=== PATIENT | male | born 1975 | race Caucasian/White ===

== ENCOUNTER 2023-07-16 17:42 | Inpatient (IN) | payer OTHER ==
[2023-07-16 17:55] VITALS: BMI 39.1
[2023-07-16] MEDS ORDERED: PIPERACILLIN/TAZOB 4.5 GM 4.5 GM/100 ML BAG IVPB ONE (18:41)
[2023-07-16 19:11] LABS: VENOUS BASE EXCESS 1.6 mmol/L (-2-2); VENOUS O2 SATURATION 86.1 % (70-80); VENOUS PCO2 38.3 mmHg (38-52); VENOUS PH 7.443 (7.310-7.410)
[2023-07-16 19:13] LABS: BASO % 0.3 % (0-2.0); EOS % 2.2 % (0-4.5); HEMATOCRIT 35.9 % (35.4-49); HEMOGLOBIN 12.3 GM/dL (11.7-16.9); LYMPH % 14.6 % (8-40); MCH 30.7 pg (25.7-33.7); MCHC 34.2 g/dl (32.0-35.9); MEAN CELL VOLUME 89.7 fl (80-96); MEAN PLT VOLUME 8.5 fl (7.5-11.1); MONO % 6.4 % (3.8-10.2); NEUT % 76.5 % (42.8-82.8); PLATELET COUNT 276 10^3/uL (134-434); RDW 14.1 % (11.9-15.9); WHITE BLOOD COUNT 12.1 K/mm3 (4.0-10.0)
[2023-07-16 19:20] LABS: INR 1.19 (0.83-1.09); PROTHROMBIN TIME (PATIENT) 13.8 SEC (9.7-13.0)
[2023-07-16 19:22] LABS: ACTIVATED PTT 26.7 SECONDS (25.2-36.5)
[2023-07-16 19:31] LABS: POTASSIUM 3.3 mmol/L (3.5-5.1)
[2023-07-16 19:34] LABS: ALBUMIN 2.9 g/dl (3.4-5.0); BLOOD UREA NITROGEN 17.3 mg/dL (7-18); CALCIUM 8.4 mg/dL (8.5-10.1)
[2023-07-16 19:39] LABS: BILIRUBIN,TOTAL 0.4 mg/dL (0.2-1); TOT PROT 6.4 g/dl (6.4-8.2)
[2023-07-16] MEDS: SODIUM CHLORIDE 3,198 ML IV ONE (20:16)
[2023-07-16] MEDS: PIPERACILLIN/TAZOB 4.5 GM 4.5 GM in DEXTROSE 5%-WATER 100 ML IVPB ONE (20:16)
[2023-07-16] MEDS ORDERED: VANCOMYCIN 1 GRAM (PRE-DOCKED) 1,000 MG/250 ML BAG IVPB ONE (21:57)
[2023-07-16] MEDS: VANCOMYCIN 1,000 MG in DEXTROSE 5%-WATER - 250 ML IVPB ONE (22:02)
[2023-07-16] MEDS ORDERED: ACETAMINOPHEN INJECTION 100 ML IVPB ONE (23:29)
[2023-07-16] MEDS: ACETAMINOPHEN 1000 MG/100 ML BAG IVPB ONE (23:31)
[2023-07-17] MEDS: SODIUM CHLORIDE 1,000 ML IV SCH (01:21)
[2023-07-17] MEDS ORDERED: PIPERACILLIN/TAZOB 4.5 GM 4.5 GM/100 ML BAG IVPB ONE ×2 (03:10→10:44)
[2023-07-17] MEDS: PIPERACILLIN/TAZOB 4.5 GM 4.5 GM in DEXTROSE 5%-WATER 100 ML IVPB SCH ×3 (03:16→12:02)
[2023-07-17 07:48] LABS: BASO % 0.8 % (0-2.0); EOS % 3.4 % (0-4.5); HEMATOCRIT 38.1 % (35.4-49); HEMOGLOBIN 12.8 GM/dL (11.7-16.9); LYMPH % 20.8 % (8-40); MCH 30.9 pg (25.7-33.7); MCHC 33.7 g/dl (32.0-35.9); MEAN CELL VOLUME 91.5 fl (80-96); MEAN PLT VOLUME 8.4 fl (7.5-11.1); MONO % 8.9 % (3.8-10.2); NEUT % 66.1 % (42.8-82.8); PLATELET COUNT 297 10^3/uL (134-434); RBC 4.16 M/mm3 (4.00-5.60); WHITE BLOOD COUNT 11.9 K/mm3 (4.0-10.0)
[2023-07-17 08:03] LABS: POTASSIUM 3.6 mmol/L (3.5-5.1)
[2023-07-17 08:09] LABS: ALBUMIN 2.8 g/dl (3.4-5.0); BLOOD UREA NITROGEN 10.5 mg/dL (7-18)
[2023-07-17 08:10] LABS: MAGNESIUM 2.5 mg/dL (1.8-2.4)
[2023-07-17 08:12] LABS: CREATININE 0.9 mg/dL (0.55-1.3); PHOSPHOROUS 3.6 mg/dL (2.5-4.9)
[2023-07-17 08:14] LABS: BILIRUBIN,TOTAL 0.5 mg/dL (0.2-1); TOT PROT 6.3 g/dl (6.4-8.2)
[2023-07-17 09:21] LABS: ERYTHROCYTE SEDIMENTATION RATE 49 mm/hr (0-10)
[2023-07-17] MEDS ORDERED: ENOXAPARIN NA (PORCINE) 40 MG/0.4 ML DISP.SYRIN SQ ONE (10:44)
[2023-07-17] MEDS: ENOXAPARIN NA (PORCINE) 40 MG/0.4 ML DISP.SYRIN SQ SCH (10:45)
[2023-07-17] MEDS: PIPERACILLIN/TAZOB 3.375 GM 4.5 GM in DEXTROSE 5%-WATER - 50 ML IVPB SCH (11:59)
[2023-07-17] MEDS ORDERED: VANCOMYCIN PREMIX 1.5 GM 1,500 MG/300 ML BAG IVPB SCH (12:00)
[2023-07-17] MEDS ORDERED: ACETAMINOPHEN 325 MG TABLET (FP) ONE (12:07)
[2023-07-17] MEDS ORDERED: CEFTRIAXONE 2 GM/100 ML BAG IVPB ONE (12:08)
[2023-07-17] MEDS: CEFTRIAXONE 2 GM in DEXTROSE 5%-WATER 100 ML IVPB SCH (12:30)
[2023-07-17] MEDS: ACETAMINOPHEN 325 MG TABLET (FP) PO PRN (12:30)
[2023-07-17] MEDS ORDERED: LIDOCAINE HCL/PF 2% SDV 5ML VIAL ONE (13:03)
[2023-07-17] MEDS ORDERED: MIDAZOLAM HCL 2 MG/2 ML SINGLE DOSE VIAL ONE (13:03)
[2023-07-17] MEDS ORDERED: PROPOFOL 20 ML ONE (13:03)
[2023-07-17 13:10] LABS: PH,URINE 5.5 (5.0-8.0); URINE APPEARANCE CLEAR; URINE BILIRUBIN NEGATIVE (NEGATIVE); URINE COLOR YELLOW; URINE GLUCOSE (UA) NEGATIVE (NEGATIVE); URINE KETONE NEGATIVE (NEGATIVE); URINE LEUK ESTERASE NEGATIVE (NEGATIVE); URINE NITRITE NEGATIVE (NEGATIVE); URINE PROTEIN NEGATIVE (NEGATIVE)
[2023-07-17] MEDS ORDERED: ONDANSETRON 4 MG/2 ML VIAL IVPUSH PRN ×2 (15:56→20:40)
[2023-07-17] MEDS: VANCOMYCIN PREMIX 1.5 GM 1,500 MG/300 ML BAG IVPB SCH ×2 (17:45→18:00)
[2023-07-17] MEDS: VANCOMYCIN HCL 1,500 MG in DEXTROSE 5%-WATER - 250 ML IVPB SCH (18:00)
[2023-07-17] MEDS ORDERED: LIDOCAINE HCL 1%, 10 MG/ML (20ML VIAL) ONE (19:52)
[2023-07-17] MEDS ORDERED: BUPIVACAINE HCL/PF 0.5% (5MG/ML) 10 ML VIAL ONE (19:52)
[2023-07-17] MEDS ORDERED: ONDANSETRON 4 MG/2 ML VIAL ONE (20:28)
[2023-07-17] MEDS ORDERED: KETOROLAC TROMETHAMINE 30 MG/1 ML VIAL ONE (20:28)
[2023-07-17] MEDS: oxyCODONE HCL 5 MG TABLET PO PRN (22:55)
[2023-07-18] MEDS: ACETAMINOPHEN 325 MG TABLET (FP) PO PRN (00:35)
[2023-07-18] MEDS: VANCOMYCIN PREMIX 1.5 GM 1,500 MG/300 ML BAG IVPB SCH (06:45)
[2023-07-18] MEDS: LACTATED RINGERS SOLUTION 1,000 ML IV SCH (08:00)
[2023-07-18 09:23] LABS: BASO % 1.1 % (0-2.0); EOS % 4.6 % (0-4.5); HEMATOCRIT 37.3 % (35.4-49); HEMOGLOBIN 12.5 GM/dL (11.7-16.9); LYMPH % 18.1 % (8-40); MCH 30.8 pg (25.7-33.7); MCHC 33.6 g/dl (32.0-35.9); MEAN CELL VOLUME 91.6 fl (80-96); MONO % 8.1 % (3.8-10.2); NEUT % 68.1 % (42.8-82.8); PLATELET COUNT 275 10^3/uL (134-434); RBC 4.07 M/mm3 (4.00-5.60); RDW 13.7 % (11.9-15.9); WHITE BLOOD COUNT 10.4 K/mm3 (4.0-10.0)
[2023-07-18 09:35] LABS: POTASSIUM 3.7 mmol/L (3.5-5.1)
[2023-07-18 09:36] LABS: CALCIUM 8.4 mg/dL (8.5-10.1)
[2023-07-18 09:37] LABS: BLOOD UREA NITROGEN 10.5 mg/dL (7-18)
[2023-07-18] MEDS: ENOXAPARIN NA (PORCINE) 40 MG/0.4 ML DISP.SYRIN SQ SCH (09:38)
[2023-07-18 09:40] LABS: CREATININE 0.8 mg/dL (0.55-1.3)
[2023-07-18] MEDS: CEFTRIAXONE 2 GM in DEXTROSE 5%-WATER 100 ML IVPB SCH (09:44)
[2023-07-19 07:52] LABS: HEMATOCRIT 38.6 % (35.4-49); HEMOGLOBIN 13.1 GM/dL (11.7-16.9); MCH 30.8 pg (25.7-33.7); MCHC 33.9 g/dl (32.0-35.9); MEAN CELL VOLUME 90.7 fl (80-96); PLATELET COUNT 325 10^3/uL (134-434); RBC 4.26 M/mm3 (4.00-5.60); RDW 13.8 % (11.9-15.9); WHITE BLOOD COUNT 10.7 K/mm3 (4.0-10.0)
[2023-07-19 08:06] LABS: POTASSIUM 4.1 mmol/L (3.5-5.1)
[2023-07-19 08:08] LABS: ALBUMIN 2.7 g/dl (3.4-5.0); BLOOD UREA NITROGEN 9.6 mg/dL (7-18); CALCIUM 8.9 mg/dL (8.5-10.1)
[2023-07-19 08:11] LABS: CREATININE 0.8 mg/dL (0.55-1.3)
[2023-07-19 08:13] LABS: BILIRUBIN,TOTAL 0.3 mg/dL (0.2-1); TOT PROT 6.6 g/dl (6.4-8.2)
[2023-07-19 10:21] LABS: ANISOCYTOSIS 0; HELMET CELLS 0; HOWELL-JOLLY BODIES 0; MACROCYTOSIS 0; OVALOCYTE 0; ROULEAU 0; SICKELED CELLS 0; TARGET CELLS 0; TEAR DROP CELLS 0; TOXIC GRANULATION 0
[2023-07-20 08:53] LABS: HEMATOCRIT 39.8 % (35.4-49); HEMOGLOBIN 13.6 GM/dL (11.7-16.9); MCH 31.1 pg (25.7-33.7); MCHC 34.1 g/dl (32.0-35.9); MEAN CELL VOLUME 91.2 fl (80-96); MEAN PLT VOLUME 7.8 fl (7.5-11.1); PLATELET COUNT 330 10^3/uL (134-434); RBC 4.37 M/mm3 (4.00-5.60); RDW 14.2 % (11.9-15.9); WHITE BLOOD COUNT 9.1 K/mm3 (4.0-10.0)
[2023-07-20 09:11] LABS: POTASSIUM 4.5 mmol/L (3.5-5.1)
[2023-07-20 09:15] LABS: BLOOD UREA NITROGEN 10.9 mg/dL (7-18)
[2023-07-20 09:18] LABS: CREATININE 0.8 mg/dL (0.55-1.3)
[2023-07-20 10:44] LABS: ANISOCYTOSIS 0; HELMET CELLS 0; HOWELL-JOLLY BODIES 0; MACROCYTOSIS 0; OVALOCYTE 0; ROULEAU 0; SICKELED CELLS 0; TARGET CELLS 0; TEAR DROP CELLS 0; TOXIC GRANULATION 0
[2023-07-20] MEDS: metroNIDAZOLE 250 MG TABLET PO SCH (13:40)
[2023-07-21 09:16] LABS: HEMATOCRIT 40.6 % (35.4-49); HEMOGLOBIN 13.9 GM/dL (11.7-16.9); MCH 31.3 pg (25.7-33.7); MCHC 34.3 g/dl (32.0-35.9); MEAN CELL VOLUME 91.3 fl (80-96); MEAN PLT VOLUME 7.7 fl (7.5-11.1); PLATELET COUNT 387 10^3/uL (134-434); RBC 4.44 M/mm3 (4.00-5.60); WHITE BLOOD COUNT 9.2 K/mm3 (4.0-10.0)
[2023-07-21 09:26] LABS: POTASSIUM 4.4 mmol/L (3.5-5.1)
[2023-07-21 09:29] LABS: CALCIUM 9.4 mg/dL (8.5-10.1)
[2023-07-21 09:30] LABS: ALBUMIN 3.1 g/dl (3.4-5.0)
[2023-07-21 09:33] LABS: CREATININE 0.8 mg/dL (0.55-1.3)
[2023-07-21 09:34] LABS: BILIRUBIN,TOTAL 0.4 mg/dL (0.2-1)
[2023-07-21 09:35] LABS: TOT PROT 7.4 g/dl (6.4-8.2)
[2023-07-21 14:03] LABS: ANISOCYTOSIS 0; HELMET CELLS 0; HOWELL-JOLLY BODIES 0; MACROCYTOSIS 0; OVALOCYTE 0; ROULEAU 0; SICKELED CELLS 0; TARGET CELLS 0; TEAR DROP CELLS 0; TOXIC GRANULATION 0
[2023-07-21 23:02] VITALS: RESP 20
[2023-07-22 09:40] LABS: BASO % 0.7 % (0-2.0); EOS % 3.3 % (0-4.5); HEMATOCRIT 40.1 % (35.4-49); HEMOGLOBIN 13.3 GM/dL (11.7-16.9); LYMPH % 20.9 % (8-40); MCH 30.5 pg (25.7-33.7); MCHC 33.2 g/dl (32.0-35.9); MEAN CELL VOLUME 91.7 fl (80-96); MEAN PLT VOLUME 7.6 fl (7.5-11.1); MONO % 4.1 % (3.8-10.2); PLATELET COUNT 383 10^3/uL (134-434); RBC 4.38 M/mm3 (4.00-5.60); WHITE BLOOD COUNT 9.2 K/mm3 (4.0-10.0)
[2023-07-22 10:16] LABS: POTASSIUM 4.1 mmol/L (3.5-5.1)
[2023-07-22 10:36] LABS: BLOOD UREA NITROGEN 11.8 mg/dL (7-18); MAGNESIUM 2.3 mg/dL (1.8-2.4)
[2023-07-22 10:39] LABS: CREATININE 0.9 mg/dL (0.55-1.3)
[2023-07-22 10:40] LABS: BILIRUBIN,TOTAL 0.4 mg/dL (0.2-1)
[2023-07-22 15:00] VITALS: BP 130/77; PULSE 71; TEMP 98.6
== END 2023-07-22 14:56 | disposition home or self-care (01) | DRG 720 ==
LOC: JER 17:42 → JERBED 07-17 00:03 → J8W 07-17 14:05
PROVIDERS: ADMIT Internal Medicine; ATTEND Nurse Practitioner Acute Care
PROC: 0Y9C0ZZ Drainage of Right Upper Leg, Open Approach (ICD-10-PCS; principal; 2023-07-17 13:30)
DX: A41.89 Other specified sepsis (principal); L03.115 Cellulitis of right lower limb; R00.0 Tachycardia, unspecified; E66.9 Obesity, unspecified; Z68.39 Body mass index [BMI] 39.0-39.9, adult; A49.02 Methicillin resistant Staphylococcus aureus infection, unspecified site; R73.03 Prediabetes; K21.9 Gastro-esophageal reflux disease without esophagitis; L08.9 Local infection of the skin and subcutaneous tissue, unspecified; L02.415 Cutaneous abscess of right lower limb; Z59.89 Other problems related to housing and economic circumstances
CPT/HCPCS: 0241U-QW; 36415; 71045-TC-FY; 73701-TC-RT; 80048; 80053; 81003; 82550; 82803; 83036; 83605; 83735; 84100; 84484; 85025; 85610; 85651; 85730; 86140; 86850; 86900; 86901; 87040; 87070; 87077; 87081; 87086; 87205; 93005; 93010; 94760; 99285-25; G0480; J0131; Q9967